=== PATIENT | female | born 1975 | race Hispanic/Latino ===

== ENCOUNTER 2021-10-15 22:06 | Emergency (ER) | payer SELFPAY | END 2021-10-16 00:30 | disposition home or self-care (01) | LOC: ERS 22:06 | DX: H10.9 Unspecified conjunctivitis (principal); N76.0 Acute vaginitis; Z79.899 Other long term (current) drug therapy; Z79.84 Long term (current) use of oral hypoglycemic drugs | CPT/HCPCS: 99283 ==